=== PATIENT | male | born 1980 | race Caucasian/White ===

== ENCOUNTER 2017-10-16 14:16 | Emergency (ER) | payer SELFPAY ==
[~2017-10-16] VITALS: Ht 172.7 cm; Wt 80.2 kg
[2017-10-16 14:59] LABS: HEMATOCRIT 53.1 % (38.0-50.0); HEMOGLOBIN 18.4 G/DL (12.5-16.6); MCH 31.2 PG (29.0-34.0); MCHC 34.7 G/DL (30.0-36.0); PLATELET COUNT 161 K/uL (156-360); RBC DIS.WIDTH-CV 13.2 % (11.8-14.6); RBC DIS.WIDTH-SD 44.1 % (39-53); WHITE BLOOD COUNT 5.6 K/uL (4.1-10.2)
[2017-10-16 15:14] LABS: CHLORIDE 102 mEq/L (99-109); POTASSIUM 4.1 mEq/L (3.7-5.4); SODIUM 138 mEq/L (136-147)
[2017-10-16 15:16] LABS: GLUCOSE 121 mg/dL (70-99)
[2017-10-16 15:20] LABS: CREATININE 1.1 mg/dL (0.6-1.3); GFR ESTIMATE (CALCULATED) > 59 mL/min/ (58.99-99999)
[2017-10-16 15:21] LABS: UREA NITROGEN (BUN) 11 mg/dL (9-23)
[2017-10-16 17:19] LABS: APPEARANCE CLEAR ((CLEAR)); BILIRUBIN NEGATIVE; BLOOD NEGATIVE; COLOR AMBER ((YELLOW)); GLUCOSE (STRIP) NEGATIVE; KETONES 5; LEUKOCYTES NEGATIVE; NITRITE NEGATIVE; PROTEIN (STRIP) 30; SPECIFIC GRAVITY 1.031 (1.000-1.030)
[2017-10-16] MEDS ORDERED: ZOFRAN ODT8 MG PO (17:38)
[2017-10-16] MEDS ORDERED: TRAMADOL HCL50 MG PO (17:38)
[2017-10-16] MEDS ORDERED: TESSALON PERLE100 MG PO (17:38)
[2017-10-16 17:54] VITALS: BP 119/79
== END 2017-10-16 17:55 | disposition home or self-care (01) ==
LOC: EME 14:16
PROVIDERS: Physician Assistant
DX: B34.9 Viral infection, unspecified (principal); R11.2 Nausea with vomiting, unspecified
CPT/HCPCS: 71046; 80048; 81003; 85027; 87502; 99281; 99285; J1885; J2405; J3010; J7030